=== PATIENT | male | born 1985 | race Caucasian/White ===

== ENCOUNTER 2017-08-22 13:05 | Emergency (ER) | payer SELFPAY ==
[~2017-08-22] VITALS: Ht 188 cm; Wt 100.0 kg
[2017-08-22 13:10] VITALS: BP 129/70; PULSE 75; RESP 16; TEMP 99.1; O2SAT 100
[2017-08-22] MEDS ORDERED: cortisporin otic LEFT EAR (13:27)
[2017-08-22] MEDS ORDERED: AMOX875T PO (13:29)
[2017-08-22] MEDS ORDERED: cortisporin otic RIGHT EAR (13:31)
--- NOTE | 2017-08-22 13:32 | PD ---
HPI Chief Complaint: ENT Complaint Time Seen by Provider: 13:13 Travel History International Travel<30 days: No Contact w/Intl Traveler<30days: No Traveled to known affect area: No History of Present Illness HPI 32-year-old male presents to the emergency department for evaluation of right ear pain for 4 days. He rates the pain 10/10 to the right ear, aching. No radiation of pain. He reports history of ear infections in the past. No exacerbating or alleviating factors. He denies any recent swimming. He has no medical problems and takes no prescribed medications. Mild severity. PFSH Social History Alcohol Use: No Tobacco Use: No Substance Use: No Allergies-Medications (Allergen,Severity, Reaction): Coded Allergies: No Known Allergies (Unverified , 08/22/17) Reported Meds & Prescriptions Reported Meds & Active Scripts Active [cortisporin otic] 4 Drop RIGHT EAR TID Amoxicillin 875 Mg Tab 875 Mg PO BID 10 Days Review of Systems Except as stated in HPI: all other systems reviewed are Neg Physical Exam Narrative GENERAL: Well-nourished, well-developed male patient, afebrile. SKIN: Focused skin assessment warm/dry. HEAD: Normocephalic. Atraumatic ENT: Mucosa pink and moist. No erythema or exudates. No uvular edema. No uvular , palatal, or tonsillar deviation. Airway patent. Nasal turbinates appear normal without nasal blood, purulent drainage or septal hematoma. Right ear canal is erythematous with drainage. Right tympanic membrane is erythematous with loss of landmarks. No mastoid tenderness to palpation. EYES: No scleral icterus. No injection or drainage. NECK: Supple, trachea midline. No JVD or lymphadenopathy. CARDIOVASCULAR: Regular rate and rhythm without murmurs, gallops, or rubs. RESPIRATORY: Breath sounds equal bilaterally. No accessory muscle use. Lung sounds are clear to auscultation. GASTROINTESTINAL: Abdomen soft, non-tender, nondistended. MUSCULOSKELETAL: No cyanosis, or edema. BACK: Nontender without obvious deformity. No CVA tenderness. Data Data Last Documented VS Vital Signs Date Time Temp Pulse Resp B/P (MAP) Pulse Ox O2 Delivery O2 Flow Rate FiO2 08/22/17 13:10 99.1 75 16 129/70 (89) 100 Orders Orders Ed Discharge Order (5/23/18 13:32) [facility] Medical Decision Making Medical Screen Exam Complete: Yes Emergency Medical Condition: Yes Medical Record Reviewed: Yes Differential Diagnosis Otitis media versus otitis externa versus eustachian tube dysfunction Narrative Course 32-year-old male presents to the emergency department for evaluation of right ear pain for 4 days. Physical exam is consistent with otitis externa and media. Patient will be discharged prescription for Cortisporin eardrops and amoxicillin. He is to follow the primary care physician return here for any acute worsening of symptoms. The patient was discharged in stable condition with instructions, including return instructions and follow up instructions. Diagnosis Primary Impression: Otitis externa Qualified Codes: H60.501 - Unspecified acute noninfective otitis externa, right ear Additional Impression: Otitis media Qualified Codes: H66.91 - Otitis media, unspecified, right ear Referrals: Primary Care Physician call for appointment Patient Instructions: Ear Infection (ED), General Instructions, Otitis Externa (ED) Additional Instructions: Take antibiotic as directed until gone. This is free at [facility] Use antibiotic eardrops as directed. This is cheapest at [facility]. Use coupon. No swimming until healed. Follow-up with a primary care physician. Return to the emergency department for any acute worsening of symptoms. Med/Other Pt SpecificInfo: Prescription(s) given Scripts [cortisporin otic] No Conflict Check 4 DROP RIGHT EAR TID for Infection, #1 BOTTLE Prov: Parvin Lewis 08/22/17 Amoxicillin (Amoxicillin) 875 Mg Tab 875 MG PO BID for Infection for 10 Days, #20 TAB 0 Refills Prov: Parvin Lewis 08/22/17 Disposition: 01 DISCHARGE HOME Condition: Stable Parvin Lewis August 22, 2017 13:32
== END 2017-08-22 13:48 | disposition home or self-care (01) ==
LOC: NEPK 13:05
DX: H60.501 Unspecified acute noninfective otitis externa, right ear (principal); H66.91 Otitis media, unspecified, right ear
CPT/HCPCS: 99283